=== PATIENT | female | born 1955 | race Caucasian/White ===

== ENCOUNTER 2018-06-27 08:19 | Emergency (ER) | payer OTHER ==
[2018-06-27] MEDS: IBUPROFEN 600 MG TAB PO (09:03)
== END 2018-06-27 10:32 | disposition home or self-care (01) ==
LOC: FTE 08:19
DX: M54.2 Cervicalgia (principal); J44.9 Chronic obstructive pulmonary disease, unspecified; M50.122 Cervical disc disorder at C5-C6 level with radiculopathy; M50.121 Cervical disc disorder at C4-C5 level with radiculopathy; Z87.891 Personal history of nicotine dependence
CPT/HCPCS: 72040; 99283-25

== ENCOUNTER 2018-12-16 00:45 | Emergency (ER) | payer MEDICARE, OTHER ==
[2018-12-16] MEDS: IPRATROPIUM (NEB) 0.5 MG/2.5 ML AMP INH (00:59)
[2018-12-16] MEDS: ALBUTEROL 0.5% (NEB) 2.5 MG/0.5 ML AMP INH (01:00)
[2018-12-16] MEDS: MAGNESIUM SULFATE 2 GM/50 ML 50 ML IVPB (01:30)
[2018-12-16] MEDS: LORAZEPAM 2 MG INJ IV (01:30)
[2018-12-16] MEDS: DEXAMETHASONE 10 MG/ML 1 ML INJ IV (01:30)
== END 2018-12-16 04:16 | disposition home or self-care (01) ==
LOC: E/R 00:45
DX: J45.901 Unspecified asthma with (acute) exacerbation (principal); F17.210 Nicotine dependence, cigarettes, uncomplicated; F41.9 Anxiety disorder, unspecified
CPT/HCPCS: 93005; 94644; 96374; 96375; 99284-25